=== PATIENT | female | born 1945 | race African-American/Black ===

== ENCOUNTER 2017-08-11 14:13 | Observation (INO) | payer MEDICARE ==
[~2017-08-11] VITALS: Ht 165.1 cm; Wt 78.0 kg
[~2017-08-11 14:13] MED LIST: ASPI81TA82 PO; MELO7.5T PO; ROBA750T3 PO
[2017-08-11 14:17] VITALS: BP 175/94; PULSE 78; RESP 18; TEMP 98.7; O2SAT 100
[2017-08-11] MEDS ORDERED: ATEN25TA PO (14:34)
[2017-08-11] MEDS ORDERED: SODIUM CHLORIDE 0.9% FLUSH 5 ML FLUSH IV FLUSH PRN (14:45)
--- NOTE | 2017-08-11 15:28 | RADRPT ---
EXAM DATE/TIME: 08/11/2017 15:08 [facility] COMPARISON: No previous studies available for comparison. INDICATIONS : Altered mental status RADIATION DOSE: 32.28 CTDIvol (mGy) MEDICAL HISTORY : Hypertension. SURGICAL HISTORY : None. ENCOUNTER: Initial ACUITY: 1 day PAIN SCALE: 0/10 LOCATION: cranial TECHNIQUE: Multiple contiguous axial images were obtained of the head. Using automated exposure control and adj ustment of the mA and/or kV according to patient size, radiation dose was kept as low as reasonably a chievable to obtain optimal diagnostic quality images. DICOM format image data is available electro nically for review and comparison. FINDINGS: CEREBRUM: The ventricles are normal for age. No evidence of midline shift, mass lesion, hemorrhage or acute in farction. No extra-axial fluid collections are seen. POSTERIOR FOSSA: The cerebellum and brainstem are intact. The 4th ventricle is midline. The cerebellopontine angle i s unremarkable. EXTRACRANIAL: The visualized portion of the orbits is intact. SKULL: The calvaria is intact. No evidence of skull fracture. CONCLUSION: Normal examination. Steven Bush Jr., MD on August 11, 2017 at 15:19 Board Certified Radiologist. This report was verified electronically.
--- NOTE | 2017-08-11 15:38 | PD ---
HPI Chief Complaint: Altered Mental Status Time Seen by Provider: 15:35 Travel History International Travel<30 days: No Contact w/Intl Traveler<30days: No Traveled to known affect area: No History of Present Illness HPI 71-year-old female with PMH of HTN presents to the ED for evaluation after an episode of disorientation today. There are multiple family members at bedside who help to provide the history. Presentation the patient is alert and oriented 4. The patient states that she's been feeling well lately. She denies headaches, dizziness, vision changes, chest pain, palpitations, shortness of breath, abdominal pain, nausea, vomiting, dysuria, weakness of the extremities. She states that she became disoriented after attending a meeting at [employer] today. A friend at bedside states that he found her in the parking lot of the office she was confused and unsure where she was. He states that the patient's face appeared very slack. He states that he gave her a Pepsi because he thought that her sugar might be low. He states that she gradually began to seem more herself. The patient's is at bedside and states that she was completely normal this morning except when she got ready to leave she told him not to make the bed in case he wanted to lay down. He states this is very unusual for the patient. Patient is followed by Dr. Stewart. Last saw him last week. States previous lab work was completely normal. PFSH Past Medical History Hypertension: Yes Tetanus Vaccination: > 5 Years Influenza Vaccination: No ?: Not Past Surgical History Surgical History: No Previous Surgery Social History Alcohol Use: No Tobacco Use: No Substance Use: No Allergies-Medications (Allergen,Severity, Reaction): Coded Allergies: No Known Allergies (Unverified Allergy, Unknown, 08/11/17) Reported Meds & Prescriptions Reported Meds & Active Scripts Active Reported Aspirin 81 Mg Chew 81 Mg CHEW DAILY Atenolol 25 Mg Tab 25 Mg PO DAILY Review of Systems Except as stated in HPI: all other systems reviewed are Neg Physical Exam Narrative GENERAL: Well-nourished, well-developed black female in no acute distress. SKIN: Focused skin assessment warm/dry. HEAD: Normocephalic. EYES: No scleral icterus. No injection or drainage. NECK: Supple, trachea midline. No JVD or lymphadenopathy. CARDIOVASCULAR: Regular rate and rhythm without murmurs, gallops, or rubs. RESPIRATORY: Breath sounds clear and equal bilaterally. No accessory muscle use. GASTROINTESTINAL: Abdomen soft, non-tender, nondistended. Active bowel sounds MUSCULOSKELETAL: No cyanosis, or edema. Moves extremities spontaneously. NEUROLOGICAL: Awake and alert. Cranial nerves II through XII intact. Motor and sensory grossly within normal limits. Five out of 5 muscle strength in all muscle groups. Normal speech. BACK: Nontender without obvious deformity. No CVA tenderness. Data Data Last Documented VS Vital Signs Date Time Temp Pulse Resp B/P (MAP) Pulse Ox O2 Delivery O2 Flow Rate FiO2 08/11/17 15:54 75 18 148/87 (107) 100 Room Air 08/11/17 14:17 98.7 Orders Orders Electrocardiogram (08/11/17 14:34) Ammonia (08/11/17 14:34) Complete Blood Count With Diff (08/11/17 14:34) Comprehensive Metabolic Panel (08/11/17 14:34) Troponin I (08/11/17 14:34) Urinalysis - C+S If Indicated (08/11/17 14:34) Ct Brain W/O Iv Contrast(Rout) (08/11/17 14:34) Ecg Monitoring (08/11/17 14:34) Iv Access Insert/Monitor (08/11/17 14:34) Sodium Chloride 0.9% Flush (Ns Flush) (08/11/17 14:45) Blood Glucose (08/11/17 15:34) Urine Culture (08/11/17 15:30) Admit Order (Ed Use Only) (08/11/17 16:28) Labs Laboratory Tests Test 08/11/17 15:30 08/11/17 15:40 White Blood Count 5.9 TH/MM3 Red Blood Count 4.69 MIL/MM3 Hemoglobin 13.2 GM/DL Hematocrit 40.2 % Mean Corpuscular Volume 85.8 FL Mean Corpuscular Hemoglobin 28.2 PG Mean Corpuscular Hemoglobin Concent 32.9 % Red Cell Distribution Width 14.2 % Platelet Count 260 TH/MM3 Mean Platelet Volume 7.5 FL Neutrophils (%) (Auto) 58.9 % Lymphocytes (%) (Auto) 30.0 % Monocytes (%) (Auto) 8.8 % Eosinophils (%) (Auto) 1.2 % Basophils (%) (Auto) 1.1 % Neutrophils # (Auto) 3.5 TH/MM3 Lymphocytes # (Auto) 1.8 TH/MM3 Monocytes # (Auto) 0.5 TH/MM3 Eosinophils # (Auto) 0.1 TH/MM3 Basophils # (Auto) 0.1 TH/MM3 CBC Comment DIFF FINAL Differential Comment Urine Color COLORLESS Urine Turbidity CLEAR Urine pH 5.0 Urine Specific [place] 1.002 Urine Protein NEG mg/dL Urine Glucose (UA) NEG mg/dL Urine Ketones NEG mg/dL Urine Occult Blood NEG Urine Nitrite NEG Urine Bilirubin NEG Urine Urobilinogen LESS THAN 2.0 MG/DL Urine Leukocyte Esterase NEG Urine WBC LESS THAN 1 /hpf Urine Bacteria RARE /hpf Microscopic Urinalysis Comment CATH-CULTURE IND Blood Urea Nitrogen 12 MG/DL Creatinine 0.85 MG/DL Random Glucose 109 MG/DL Total Protein 8.1 GM/DL Albumin 3.7 GM/DL Calcium Level 9.3 MG/DL Alkaline Phosphatase 89 U/L Aspartate Amino Transf (AST/SGOT) 20 U/L Alanine Aminotransferase (ALT/SGPT) 19 U/L Total Bilirubin 0.4 MG/DL Sodium Level 139 MEQ/L Potassium Level 3.5 MEQ/L Chloride Level 106 MEQ/L Carbon Dioxide Level 23.4 MEQ/L Anion Gap 10 MEQ/L Estimat Glomerular Filtration Rate 80 ML/MIN Troponin I 0.02 NG/ML Ammonia 23 MCMOL/L MDM Medical Decision Making Medical Screen Exam Complete: Yes Emergency Medical Condition: Yes Differential Diagnosis TIA versus CVA versus hypoglycemia versus UTI versus metabolic drainage from versus other Narrative Course 71-year-old female with PMH of HTN presents to the ED for evaluation after an episode of disorientation today. On presentation the patient is alert and oriented 4. She denies headaches, dizziness, vision changes, chest pain, palpitations, shortness of breath, abdominal pain, nausea, vomiting, dysuria, weakness of the extremities, recent illness. She states that she became disoriented after attending a meeting at [employer] today. A friend at bedside states that he found her in the parking lot of the office she was confused and unsure where she was. He states that the patient's face appeared very slack. He states that he gave her a Pepsi because he thought that her sugar might be low. He states that she gradually began to seem more herself. The patient's is at bedside and states that she was completely normal this morning except when she got ready to leave she told him not to make the bed in case he wanted to lay down. He states this is very unusual for the patient. Patient is followed by Dr. Stewart. Patient's hypertensive on presentation. Physical exam reveals no focal neuro deficits. Chest CTAB. Abdomen soft and nontender. No lower extremity edema. EKG rate 76, sinus rhythm. MO interval 152, QRS 93, QTC 418. Normal axis. No ST changes. Reviewed by Dr. Rodriguez. Troponin negative 1. CT brain normal per radiology read. The concerning abnormalities of the CBC or CMP. Ammonia: 23. UA: Rare bacteria. Culture pending. I discussed the results of the workup with the patient. I'm concerned for TIA and I think she would benefit from a workup. She is agreeable to admission. I discussed the patient with Dr. Putnam who agrees to accept her to the medicine service. Please see medicine notes for disposition. Kalyani Waters Aug 11, 2017 15:38
[2017-08-11 15:40] LABS: BACTERIA, URINE RARE /hpf; BLOOD, URINE NEG (NEG); GLUCOSE,URINE NEG (NEG); KETONE, URINE NEG (NEG); NITRITE,URINE NEG (NEG); URINE COLOR COLORLESS (YELLW/STRAW)
[2017-08-11 15:44] LABS: COMMENT (UR) CATH-CULTURE IND; CULTURE IF INDICATED CATH CULTURE IND
[2017-08-11 15:53] LABS: AUTOMATED NEUTROPHIL # 3.5 TH/MM3 (1.8-7.7); BASOPHIL # 0.1 TH/MM3 (0-0.2); BASOPHIL % 1.1 % (0.0-2.0); EOSINOPHIL # 0.1 TH/MM3 (0-0.4); EOSINOPHIL % 1.2 % (0.0-4.0); HEMATOCRIT 40.2 % (35.0-46.0); HEMO FLAGS DIFF FINAL; LYMPHOCYTE # 1.8 TH/MM3 (1.0-4.8); MEAN CELL VOLUME 85.8 FL (80.0-100.0); MEAN CORPUSCULAR HEMOGLOBIN 28.2 PG (27.0-34.0); MEAN CORPUSCULAR HGB CONC 32.9 % (32.0-36.0); MONO % 8.8 % (0.0-8.0); NEUT % 58.9 % (16.0-70.0); PLATELET COUNT 260 TH/MM3 (150-450); RED BLOOD COUNT 4.69 MIL/MM3 (4.00-5.30); RED CELL DISTRIBUTION WIDTH 14.2 % (11.6-17.2); WHITE BLOOD COUNT 5.9 TH/MM3 (4.0-11.0)
[2017-08-11 15:54] VITALS: BP 148/87; PULSE 75; RESP 18; O2SAT 100
[2017-08-11 15:57] LABS: ALT (GPT) 19 U/L (10-53); ANION GAP 10 MEQ/L (5-15); AST (GOT) 20 U/L (15-37); BICARBONATE 23.4 MEQ/L (21.0-32.0); BLOOD UREA NITROGEN 12 MG/DL (7-18); CHLORIDE 106 MEQ/L (98-107); GLOMERULAR FILTRATION RATE 80 ML/MIN (>89); POTASSIUM 3.5 MEQ/L (3.5-5.1); SODIUM (NA) 139 MEQ/L (136-145)
[2017-08-11 16:00] LABS: ALKALINE PHOSPHATASE 89 U/L (45-117); TOTAL BILIRUBIN ADULT 0.4 MG/DL (0.2-1.0)
[2017-08-11] MEDS ORDERED: ASPI-516 CHEW (17:01)
--- NOTE | 2017-08-11 17:27 | HHI.HP ---
HPI Service [facility] Hospitalists Primary Care Physician David Stewart D.O. Admission Diagnosis TIA Chief Complaint: AMS Travel History International Travel<30 Days: No Contact w/Intl Traveler <30 Da: No Traveled to Known Affected Are: No History of Present Illness Pt has htn and rx with atenolol. Was in her normal state of health. Went to meetings today with her [employer]. Was said to become confused and disoriented about the things she had done earlier in the day. Apparently someone gave her a pepsi and she became more oriented. No headache and no f/c. Denies cp/sob/abdomen pain and no n/v. Denies any focal weakness. no hx slurred speech. Pt denies any medication change and no hx sz or cva. No arrhythmia hx. Per family is back to baseline. Review of Systems Other confusion Past Family Social History Past Medical History htn Reported Medications Reported Meds & Active Scripts Active Reported Aspirin 81 Mg Chew 81 Mg CHEW DAILY Atenolol 25 Mg Tab 25 Mg PO DAILY Allergies: Coded Allergies: No Known Allergies (Unverified Allergy, Unknown, 08/11/17) Family History [place] Social History no tob. rare etoh Physical Exam Vital Signs oriented neck no jvd/bruit heart reg lung cta abd s/nt ext no edema Vital Signs Date Time Temp Pulse Resp B/P (MAP) Pulse Ox O2 Delivery O2 Flow Rate FiO2 08/11/17 15:54 75 18 148/87 (107) 100 Room Air 08/11/17 14:17 98.7 78 18 175/94 (121) 100 Room Air Laboratory Laboratory Tests Test 08/11/17 15:30 08/11/17 15:40 White Blood Count 5.9 Red Blood Count 4.69 Hemoglobin 13.2 Hematocrit 40.2 Mean Corpuscular Volume 85.8 Mean Corpuscular Hemoglobin 28.2 Mean Corpuscular Hemoglobin Concent 32.9 Red Cell Distribution Width 14.2 Platelet Count 260 Mean Platelet Volume 7.5 Neutrophils (%) (Auto) 58.9 Lymphocytes (%) (Auto) 30.0 Monocytes (%) (Auto) 8.8 Eosinophils (%) (Auto) 1.2 Basophils (%) (Auto) 1.1 Neutrophils # (Auto) 3.5 Lymphocytes # (Auto) 1.8 Monocytes # (Auto) 0.5 Eosinophils # (Auto) 0.1 Basophils # (Auto) 0.1 CBC Comment DIFF FINAL Differential Comment Urine Color COLORLESS Urine Turbidity CLEAR Urine pH 5.0 Urine Specific [place] 1.002 Urine Protein NEG Urine Glucose (UA) NEG Urine Ketones NEG Urine Occult Blood NEG Urine Nitrite NEG Urine Bilirubin NEG Urine Urobilinogen LESS THAN 2.0 Urine Leukocyte Esterase NEG Urine WBC LESS THAN 1 Urine Bacteria RARE Microscopic Urinalysis Comment CATH-CULTURE IND Blood Urea Nitrogen 12 Creatinine 0.85 Random Glucose 109 Total Protein 8.1 Albumin 3.7 Calcium Level 9.3 Alkaline Phosphatase 89 Aspartate Amino Transf (AST/SGOT) 20 Alanine Aminotransferase (ALT/SGPT) 19 Total Bilirubin 0.4 Sodium Level 139 Potassium Level 3.5 Chloride Level 106 Carbon Dioxide Level 23.4 Anion Gap 10 Estimat Glomerular Filtration Rate 80 Troponin I 0.02 Ammonia 23 Date/Time Source Procedure Growth Status 08/11/17 15:30 Urine Catheterized Urine Urine Culture Pending Received Result Diagram: 08/11/17 1530 08/11/17 1530 Caprini VTE Risk Assessment Caprini VTE Risk Assessment: Mod/High Risk (score >= 2) Caprini Risk Assessment Model Point Value = 1 Point Value = 2 Point Value = 3 Point Value = 5 Age 41-60 Minor surgery BMI > 25 kg/m2 Swollen legs Varicose veins or History of unexplained or recurrent spontaneous Oral contraceptives or hormone replacement Sepsis (< 1 month) Serious lung disease, including pneumonia (< 1 month) Abnormal pulmonary function Acute myocardial infarction Congestive heart failure (< 1 month) History of inflammatory bowel disease Medical patient at bed rest Age 61-74 Arthroscopic surgery Major open surgery (> 45 min) Laparoscopic surgery (> 45 min) Malignancy Confined to bed (> 72 hours) Immobilizing plaster cast Central venous access Age >= 75 History of VTE Family history of VTE Factor V Leiden Prothrombin [id number] Lupus anticoagulant Anticardiolipin antibodies Elevated serum homocysteine Heparin-induced thrombocytopenia Other congenital or acquired thrombophilia Stroke (< 1 month) Elective arthroplasty Hip, pelvis, or leg fracture Acute spinal cord injury (< 1 month) Prophylaxis Regimen Total Risk Factor Score Risk Level Prophylaxis Regimen 0-1 Low Early ambulation 2 Moderate Order ONE of the following: *Sequential Compression Device (SCD) *Heparin 5000 units SQ BID 3-4 Higher Order ONE of the following medications: *Heparin 5000 units SQ TID *Enoxaparin/Lovenox 40 mg SQ daily (WT < 150 kg, CrCl > 30 mL/min) *Enoxaparin/Lovenox 30 mg SQ daily (WT < 150 kg, CrCl > 10-29 mL/min) *Enoxaparin/Lovenox 30 mg SQ BID (WT < 150 kg, CrCl > 30 mL/min) AND/OR *Sequential Compression Device (SCD) 5 or more Highest Order ONE of the following medications: *Heparin 5000 units SQ TID (Preferred with Epidurals) *Enoxaparin/Lovenox 40 mg SQ daily (WT < 150 kg, CrCl > 30 mL/min) *Enoxaparin/Lovenox 30 mg SQ daily (WT < 150 kg, CrCl > 10-29 mL/min) *Enoxaparin/Lovenox 30 mg SQ BID (WT < 150 kg, CrCl > 30 mL/min) AND *Sequential Compression Device (SCD) Assessment and Plan Problem List: (1) Altered mental status ICD Codes: R41.82 - Altered mental status, unspecified Status: Acute Plan: 1. Delirium earlier today currently resolved. Pt admitted to eval for tia/cva There was hx of improvement after drinking a pepsi and pt reports not eating much for breakfast. mri/a brain and carotids to eval for tia/cva telemetry/echo to eval arrhythmia cont home bp meds and vitals dvt prophyaxis PT eval in AM d/c tomorrow if w/up negative and pt stable. Problem Qualifiers (1) Altered mental status: Qualified Codes: R41.0 - Disorientation, unspecified Roverto Putnam MD Aug 11, 2017 17:27
[2017-08-11] MEDS ORDERED: ACETAMINOPHEN 325 MG TAB PO PRN (17:30)
[2017-08-11 18:14] VITALS: BP 154/85; PULSE 66; RESP 19; O2SAT 100
[2017-08-11 19:46] VITALS: BP 138/76; PULSE 73; RESP 17; TEMP 97.5; O2SAT 98
--- NOTE | 2017-08-11 20:22 | RADRPT ---
EXAM DATE/TIME: 08/11/2017 18:57 [facility] COMPARISON: No previous studies available for comparison. INDICATIONS : Transient ischemic attack. MEDICAL HISTORY : Hypertension. Disorientation. Syncope. SURGICAL HISTORY : None. ENCOUNTER: Initial ACUITY: 1 day PAIN SCORE: 0/10 LOCATION: Bilateral neck PEAK SYSTOLIC VELOCITIES (cm/sec): ICA/CCA RATIO: Right: 1.5 Left: 1.8 ICA: Right: 107 Left: 120 CCA: Right: 72 Left: 66 ECA: Right: 82 Left: 77 VERTEBRAL: Right: 50 antegrade Left: 65 antegrade Elevated flow velocities and ICA/CCA ratios have been found to correlate with increased degrees of vessel stenosis, calculated as percentage of diameter relative to a normal segment of distal ICA/CCA FINDINGS: RIGHT CAROTID: Mild plaque is seen at the carotid bulb region. No significant stenosis is visualized. The waveforms are within normal limits. LEFT CAROTID: Mild plaque is seen at the carotid bulb region. No significant stenosis is visualized. The waveforms are within normal limits. VERTEBRAL ARTERIES: Antegrade flow is seen in both vertebral arteries. MISCELLANEOUS: None. CONCLUSION: Mild plaque but a significant stenosis is not seen. Martir Carrillo MD on August 11, 2017 at 20:20 Board Certified Radiologist. This report was verified electronically.
[2017-08-11] MEDS ORDERED: LORazepam 2 MG/ML VIAL IV SCH (20:30)
[2017-08-11 22:18] VITALS: PULSE 67
[2017-08-12] VITALS (7 sets, daily range): BP systolic 102–123; BP diastolic 66–69; PULSE 65–75; RESP 15–19; TEMP 97.2–98.2; O2SAT 98–100
[2017-08-12 07:30] LABS: BICARBONATE 28.2 MEQ/L (21.0-32.0); MAGNESIUM 2.2 MG/DL (1.5-2.5); POTASSIUM 3.5 MEQ/L (3.5-5.1)
--- NOTE | 2017-08-12 08:47 | HHI.PR ---
Subjective Remarks No issues overnight Pt ambulated to the bathroom without difficulty She states that her memory is coming back Objective Vitals Vital Signs Date Time Temp Pulse Resp B/P (MAP) Pulse Ox O2 Delivery O2 Flow Rate FiO2 08/12/17 07:43 98.2 68 19 102/66 (78) 100 08/12/17 04:08 69 08/12/17 03:47 97.2 68 15 119/69 (86) 98 08/12/17 00:32 97.3 71 15 123/68 (86) 98 08/11/17 22:18 67 08/11/17 19:46 97.5 73 17 138/76 (96) 98 08/11/17 18:14 66 19 154/85 (108) 100 Room Air 08/11/17 15:54 75 18 148/87 (107) 100 Room Air 08/11/17 14:17 98.7 78 18 175/94 (121) 100 Room Air Result Diagram: 08/11/17 1530 08/12/17 0615 Other Results Laboratory Tests Test 08/11/17 15:30 08/11/17 15:40 08/12/17 06:15 White Blood Count 5.9 TH/MM3 Red Blood Count 4.69 MIL/MM3 Hemoglobin 13.2 GM/DL Hematocrit 40.2 % Mean Corpuscular Volume 85.8 FL Mean Corpuscular Hemoglobin 28.2 PG Mean Corpuscular Hemoglobin Concent 32.9 % Red Cell Distribution Width 14.2 % Platelet Count 260 TH/MM3 Mean Platelet Volume 7.5 FL Neutrophils (%) (Auto) 58.9 % Lymphocytes (%) (Auto) 30.0 % Monocytes (%) (Auto) 8.8 % Eosinophils (%) (Auto) 1.2 % Basophils (%) (Auto) 1.1 % Neutrophils # (Auto) 3.5 TH/MM3 Lymphocytes # (Auto) 1.8 TH/MM3 Monocytes # (Auto) 0.5 TH/MM3 Eosinophils # (Auto) 0.1 TH/MM3 Basophils # (Auto) 0.1 TH/MM3 CBC Comment DIFF FINAL Differential Comment Urine Color COLORLESS Urine Turbidity CLEAR Urine pH 5.0 Urine Specific [place] 1.002 Urine Protein NEG mg/dL Urine Glucose (UA) NEG mg/dL Urine Ketones NEG mg/dL Urine Occult Blood NEG Urine Nitrite NEG Urine Bilirubin NEG Urine Urobilinogen LESS THAN 2.0 MG/DL Urine Leukocyte Esterase NEG Urine WBC LESS THAN 1 /hpf Urine Bacteria RARE /hpf Microscopic Urinalysis Comment CATH-CULTURE IND Blood Urea Nitrogen 12 MG/DL 14 MG/DL Creatinine 0.85 MG/DL 0.69 MG/DL Random Glucose 109 MG/DL 101 MG/DL Total Protein 8.1 GM/DL Albumin 3.7 GM/DL Calcium Level 9.3 MG/DL 9.0 MG/DL Alkaline Phosphatase 89 U/L Aspartate Amino Transf (AST/SGOT) 20 U/L Alanine Aminotransferase (ALT/SGPT) 19 U/L Total Bilirubin 0.4 MG/DL Sodium Level 139 MEQ/L 142 MEQ/L Potassium Level 3.5 MEQ/L 3.5 MEQ/L Chloride Level 106 MEQ/L 106 MEQ/L Carbon Dioxide Level 23.4 MEQ/L 28.2 MEQ/L Anion Gap 10 MEQ/L 8 MEQ/L Estimat Glomerular Filtration Rate 80 ML/MIN 102 ML/MIN Troponin I 0.02 NG/ML Ammonia 23 MCMOL/L Magnesium Level 2.2 MG/DL Imaging Last Impressions Head Magnetic Resonance Angiography 08/12/17 0000 Signed Impressions: Service Date/Time: July 08:47 - CONCLUSION: 1. 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 Intracranial circulation is otherwise widely patent. Jaleel Hutchison MD Brain MRI 08/12/17 0000 Signed Impressions: Service Date/Time: July 08:47 - CONCLUSION: 1. Negative examination. Jaleel Hutchison MD Head CT 08/11/17 1434 Signed Impressions: Service Date/Time: Friday, August 11, 2017 15:08 - CONCLUSION: Normal examination. Steven Bush Jr., MD Carotid Artery Ultrasound 08/11/17 0000 Signed Impressions: Service Date/Time: Friday, August 11, 2017 18:57 - CONCLUSION: Mild plaque but a significant stenosis is not seen. Martir Carrillo MD Last Impressions Head CT 08/11/17 1434 Signed Impressions: Service Date/Time: Friday, August 11, 2017 15:08 - CONCLUSION: Normal examination. Steven Bush Jr., MD Carotid Artery Ultrasound 08/11/17 0000 Signed Impressions: Service Date/Time: Friday, August 11, 2017 18:57 - CONCLUSION: Mild plaque but a significant stenosis is not seen. Martir Carrillo MD Objective Remarks General: NAD, AAOx3 Chest: CTA Cardiac: Regular Abd: +BS, soft ND/NT Ext: No edema A/P Problem List: (1) Altered mental status ICD Codes: R41.82 - Altered mental status, unspecified Status: Acute Plan: - Pt is a 71 y/o female with HTN who had an episode of confusion and disorientation on 08/11 Delirium - Pt had an episode of confusion and disorientation on 08/11 which resolved after drinking a Pepsi and pt reports not eating much for breakfast. 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 Intracranial circulation is otherwise widely patent. - Carotids US (08/11) --> Mild plaque but a significant stenosis is not seen. - Telemetry - 2D echo (08/11) --> Estimated EF 60%, no valvulopathies, no effusions - Cont home bp meds - DVT prophylaxis - Anticipate d/c today with negative workup. Put Holter Monitor on prior to discharge and f/u with PCP for review of Holter results Assessment and Plan Patient examined. Assessment and plan formulated with Jailene Collazo PA-C. I agree with the above. no evidence for acute cva. mri/a brain and carotids negattive. tele neg so far. cont asa and send home with 24hr holter and f/u pcp. called pcp.Pt feels well and eager for d/c. Problem Qualifiers (1) Altered mental status: Qualified Codes: R41.0 - Disorientation, unspecified Jailene Collazo Aug 12, 2017 08:47 Roverto Putnam MD Aug 12, 2017 15:05
[2017-08-12] MEDS ORDERED: ATENOLOL 25 MG TAB PO SCH (09:00)
[2017-08-12] MEDS ORDERED: ASPIRIN 81 MG CHEW TAB CHEW SCH (09:00)
--- NOTE | 2017-08-12 10:00 | RADRPT ---
EXAM DATE/TIME: 08/12/2017 08:47 [facility] COMPARISON: No previous studies available for comparison. INDICATIONS : Memory loss. MEDICAL HISTORY : Hypertension. SURGICAL HISTORY : section. ENCOUNTER: Subsequent ACUITY: 2 day PAIN SCORE: 0/10 LOCATION: cranial Please note a normal MRA of the brain does not entirely exclude the possibility of a small aneurysm, nor the possibility of distal intracranial vessel disease. TECHNIQUE: 3D time of flight MRA was performed. Source images, multiplanar STS MIP, and 3D volume MIP reconstru ctions were reviewed. FINDINGS: There is excellent visualization of the major intracranial arteries out to the second-order branch ve ssels. There is no evidence for aneurysm, vessel truncation or stenosis, and no evidence for vascula r malformation. CONCLUSION: 1. 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 Intracranial circulation is otherwise widely patent. Jaleel Hutchison MD on August 12, 2017 at 9:52 Board Certified Radiologist. This report was verified electronically.
--- NOTE | 2017-08-12 10:03 | RADRPT ---
EXAM DATE/TIME: 08/12/2017 08:47 [facility] COMPARISON: No previous studies available for comparison. INDICATIONS : Memory loss. MEDICAL HISTORY : Hypertension. SURGICAL HISTORY : section. ENCOUNTER: Subsequent ACUITY: 2 day PAIN SCORE: 0/10 LOCATION: cranial TECHNIQUE: Multiplanar, multisequence MRI of the brain was performed without contrast. FINDINGS: CEREBRUM: The ventricles are normal for age. No evidence of midline shift, mass lesion, hemorrhage or acute in farction. No extraaxial fluid collections are seen. The pituitary gland and suprasellar cistern are normal in configuration. WHITE MATTER: No significant signal abnormalities are seen in the white matter. POSTERIOR FOSSA: The cerebellum and brainstem are intact. The 4th ventricle is midline. The cerebellopontine angle is unremarkable. The cerebellar tonsils are normal in position. DIFFUSION IMAGING: No focal areas of restricted diffusion are seen. No evidence of acute infarction. EXTRACRANIAL: The visualized portions of the orbits and paranasal sinuses are unremarkable. CONCLUSION: 1. Negative examination. Jlaeel Hutchison MD on August 12, 2017 at 9:58 Board Certified Radiologist. This report was verified electronically.
--- NOTE | 2017-08-12 13:56 | ECHRPT ---
Indication: Transient cerebral ischemic attack, unspecified CONCLUSIONS Normal left ventricular size and funtion Estimated EF 60% No significant valvulopathies No pericardial effusion BP: 119 / 69 HR: 68 Rhythm: MEASUREMENTS (Male / Female) Normal Values Technical Quality:Good 2D ECHO LV Diastolic Diameter PLAX 3.3 cm 4.2 - 5.9 / 3.9 - 5.3 cm LV Systolic Diameter PLAX 2.4 cm IVS Diastolic Thickness 1.3 cm 0.6 - 1.0 / 0.6 - 0.9 cm LVPW Diastolic Thickness 1.2 cm 0.6 - 1.0 / 0.6 - 0.9 cm LV Relative Wall Thickness 0.8 RV Internal Dim ED PLAX 2.4 cm M-MODE Aortic Root Diameter MM 2.9 cm LA Systolic Diameter MM 3.3 cm LA Ao Ratio MM 1.1 AV Cusp Separation MM 1.8 cm DOPPLER Mitral E Point Velocity 78.7 cm/s Mitral A Point Velocity 78.7 cm/s Mitral E to A Ratio 1.0 FINDINGS LEFT VENTRICLE Normal left ventricular size wall thickness is measured at the upper limits of normal. The left ventricular systolic function is normal with an estimated ejection fraction in the range o f 60-65%. Left ventricular diastolic function parameters are normal. RIGHT VENTRICLE Normal right ventricular size and systolic function. LEFT ATRIUM The left atrial size is normal. RIGHT ATRIUM The right atrial size is normal. ATRIAL SEPTUM Normal atrial septal thickness without atrial level shunting by limited color doppler interrogation. AORTA The aortic root and proximal ascending aorta are not well visualized. MITRAL VALVE Structurally normal mitral valve. No mitral valve stenosis or regurgitation. AORTIC VALVE Trileaflet aortic valve. No aortic valve stenosis or regurgitation. TRICUSPID VALVE Structurally normal tricuspid valve. No tricuspid valve stenosis or regurgitation. PULMONARY VALVE No pulmonary valve regurgitation or stenosis. VESSELS The inferior vena cava is normal in size. PERICARDIUM No pericardial effusion. Hernando Ramirez MD (Electronically Signed) Final Date:12 August 2017 13:55
--- NOTE | 2017-08-12 14:29 | HHI.DCPOC ---
Discharge Care Plan Diagnosis: (1) Altered mental status Goals to Promote Your Health * To prevent worsening of your condition and complications * To maintain your health at the optimal level Directions to Meet Your Goals Take your medications as prescribed Follow your dietary instruction Follow activity as directed Keep your appointments as scheduled Take your immunizations and boosters as scheduled If your symptoms worsen call your PCP, if no PCP go to Urgent Care Center or Emergency Room Smoking is Dangerous to Your Health. Avoid second hand smoke Call the 24-hour hour crisis hotline for domestic abuse at Jailene Collazo Aug 12, 2017 14:29
[2017-08-12] MEDS ORDERED: ASPI-183 PO (14:37)
--- NOTE | 2017-08-12 16:09 | EKG ---
Date Performed: 08/11/2017 Time Performed: 14:24:32 PTAGE: 71 years EKG: Sinus rhythm POSSIBLE LEFT ATRIAL ENLARGEMENT BORDERLINE ECG NO PREVIOUS TRACING DOCTOR: Rhonda Dinero Interpretating Date/Time 08/12/2017 16:06:10
== END 2017-08-12 16:35 | disposition home or self-care (01) ==
LOC: NEPC 14:13 → NEDA 16:29 → NEPHCDU 18:53
PROVIDERS: ADMIT Hospitalist; ATTEND Hospitalist
DX: R41.82 Altered mental status, unspecified (principal); R41.0 Disorientation, unspecified; R55 Syncope and collapse; I10 Essential (primary) hypertension; Z79.899 Other long term (current) drug therapy; Z79.82 Long term (current) use of aspirin
CPT/HCPCS: 70450; 70544; 70551; 80048; 80053; 81001; 82140; 83735; 84484; 85025; 87086; 93005; 93225; 93226; 93306; 93880; 96374; 97161; 99285; G0378; G8987; G8988; J2060